=== PATIENT | male | born 1940 | race Caucasian/White ===

== ENCOUNTER → 2016-05-26 | Outpatient (CLI) | payer MEDICARE, OTHER ==
--- OUTSIDE RECORDS SUMMARY | 2016-05-26 09:33 | XMS REPORT | Clinical Summary ---
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 Young Chiu MD Closure of fistula of large intestine FH Diabetes V18.0 Active Giacomo Wynn MD Family history of diabetes mellitus AFTERCARE FLW SURG TEETH ORL CAV&DIGESTV SYS NEC V58.75 Active Young Chiu MD Aftercare following surgery of the teeth,oral cavity and digestive system, NEC Medication List Medication Instructions Start Date Stop Date Generic Name NDC Status Provider Patient Instruction K-99 595 MG CAPS POTASSIUM GLUCONATE 91283391845 No Longer Active Jillina Frazell INSERTER OPERATOR Active ADULT ASPIRIN LOW STRENGTH 81 MG TBDP ASPIRIN 14398385180 No Longer Active Jillina Frazell INSERTER OPERATOR Active AMLODIPINE-ATORVASTATIN 10-10 MG TABS AMLODIPINE- ATORVASTATIN 58603434306 No Longer Active Jillina Frazell INSERTER OPERATOR Active TYLENOL PM EXTRA STRENGTH 500-25 MG TABS 2 at bedtime DIPHENHYDRAMINE-APAP (SLEEP) 58653631190 No Longer Active Jillina Frazell INSERTER OPERATOR Active VITAMIN D 2000 UNIT CAPS Take one by mouth daily CHOLECALCIFEROL 23154417692 No Longer Active Jennifer Ashley APRN Active NEOMYCIN SULFATE 500 MG TABS two by mouth at 10:00, 11:00, and 3:00 the day before surgery NEOMYCIN SULFATE 00779248026 No Longer Active Jennifer Ashley APRN Active LEEANNA-TAB 500 MG TBEC two tablets by mouth at 10:00, 11:00 and 3:00 the day before surgery. ERYTHROMYCIN BASE 98959639647 No Longer Active Jennifer Ashley APRN Active ICAPS CAPS Take one by mouth daily MULTIPLE VITAMINS-MINERALS 48713194044 Active Jennifer Ashley APRN Active SM CORAL CALCIUM 1000 (390 CA) MG TABS Take one by mouth daily CORAL CALCIUM 18943250588 Active Jennifer Ashley APRN Active [facility] OIL 1200 MG CAPS OMEGA-3 FATTY ACIDS 24517791746 No Longer Active Jennifer Ashley APRN Active CO Q 10 CAPS Take one by mouth daily COENZYME Q10 CAPS 32008436330 Active Idalia Mays Active ASPIR-81 81 MG TBEC Take one by mouth daily ASPIRIN 77283953877 Active HODAN Glez Active PLAVIX 75 MG TABS Take one by mouth daily CLOPIDOGREL BISULFATE 94741502170 Active HODAN Glez Active LISINOPRIL 10 MG TABS LISINOPRIL 82438352791 Active Giacomo Wynn MD Active AMLODIPINE BESYLATE 10 MG TABS AMLODIPINE BESYLATE 75082429706 Active Giacomo Wynn MD Active CLOPIDOGREL BISULFATE 75 MG TABS CLOPIDOGREL BISULFATE 93127315495 Active Giacomo Wynn MD Active ATENOLOL 25 MG TABS 1/2 in the am 1/2 at hs ATENOLOL 17041637149 Active Giacomo Wynn MD Active [facility] 1200 MG CAPS [facility] OIL 1200 MG CAPS OMEGA-3 FATTY ACIDS Inactive LEEANNA-TAB 500 MG TBEC two tablets by mouth at 10:00, 11:00 and 3:00 the day before surgery. LEEANNA-TAB 500 MG TBEC ERYTHROMYCIN BASE Inactive NEOMYCIN SULFATE 500 MG TABS two by mouth at 10:00, 11:00, and 3:00 the day before surgery NEOMYCIN SULFATE 500 MG TABS 893607 NEOMYCIN SULFATE Inactive VITAMIN D 2000 UNIT CAPS Take one by mouth daily VITAMIN D 2000 UNIT CAPS CHOLECALCIFEROL Inactive TYLENOL PM EXTRA STRENGTH 500-25 MG TABS 2 at bedtime TYLENOL PM EXTRA STRENGTH 500-25 MG TABS 9607441 DIPHENHYDRAMINE-APAP (SLEEP ) Inactive AMLODIPINE-ATORVASTATIN 10-10 MG TABS AMLODIPINE- ATORVASTATIN 10-10 MG TABS 359035 AMLODIPINE-ATORVASTATIN Inactive ADULT ASPIRIN LOW STRENGTH 81 MG TBDP ADULT ASPIRIN LOW STRENGTH 81 MG TBDP ASPIRIN Inactive K-99 595 MG CAPS K-99 595 MG CAPS POTASSIUM GLUCONATE Inactive Vital Signs Date Name Value Unit Range Description blood pressure, diastolic - 8462-4 71 mm[Hg] BP santos blood pressure, systolic - 8480-6 127 mm[Hg] BP sys height E&M - 8302-2 71 [in_us] Bdy height pulse rate E&M - 8867-4 84 /min Heart rate temperature E&M 98.8 [degF] Body temperature weight E&M - 3141-9 262 [lb_av] Weight Measured blood pressure, diastolic - 8462-4 68 mm[Hg] BP satnos blood pressure, systolic - 8480-6 117 mm[Hg] BP sys pulse rate E&M - 8867-4 81 /min Heart rate temperature E&M 99.2 [degF] Body temperature weight E&M - 3141-9 258.8 [lb_av] Weight Measured blood pressure, diastolic - 8462-4 72 mm[Hg] BP santos blood pressure, systolic - 8480-6 130 mm[Hg] BP sys height E&M - 8302-2 71 [in_us] Bdy height pulse rate E&M - 8867-4 70 /min Heart rate temperature E&M 98.1 [degF] Body temperature weight E&M - 3141-9 270 [lb_av] Weight Measured blood pressure, diastolic - 8462-4 67 mm[Hg] BP santos blood pressure, systolic - 8480-6 119 mm[Hg] BP sys height E&M - 8302-2 71 [in_us] Bdy height pulse rate E&M - 8867-4 73 /min Heart rate temperature E&M 98.4 [degF] Body temperature weight E&M - 3141-9 270.6 [lb_av] Weight Measured blood pressure, diastolic - 8462-4 67 mm[Hg] BP santos blood pressure, systolic - 8480-6 112 mm[Hg] BP sys height E&M - 8302-2 71 [in_us] Bdy height pulse rate E&M - 8867-4 68 /min Heart rate temperature E&M 97.7 [degF] Body temperature weight E&M - 3141-9 276 [lb_av] Weight Measured blood pressure, diastolic - 8462-4 68 mm[Hg] BP santos blood pressure, systolic - 8480-6 127 mm[Hg] BP sys height E&M - 8302-2 71 [in_us] Bdy height pulse rate E&M - 8867-4 71 /min Heart rate temperature E&M 97.5 [degF] Body temperature weight E&M - 3141-9 262 [lb_av] Weight Measured Diagnostic Results Date Name Value Unit Range Description Lab Report: Basic Metabolic Panel - Chemistry sodium, serum 144 mmol/L 746-985 9895/01/28 potassium, serum 4.2 mmol/L 3.5-5.2 chloride, serum 105 mmol/L 98-107 carbon dioxide, venous blood 30.7 mmol/L 21.0-32.0 blood glucose 96 mg/dL 65-110 calcium, serum 9.1 mg/dL 8.5-10.1 urea nitrogen, blood 18 mg/dL 7-18 creatinine, serum 1.00 mg/dL 0.60-1.30 Lab Report: CBC W/ DIFF - Hematology leukocyte count, blood 10.6 10*3/mm3 hemoglobin, blood 10.9 g/dL platelet count 474 10*3/mm3 Lab Report: CBC W/ DIFF, BMP - Chemistry sodium, serum 144 mmol/L potassium, serum 4.4 mmol/L blood glucose 92 mg/dL creatinine, serum 1.09 mg/dL Lab Report: CBC W/ DIFF, BMP - Hematology leukocyte count, blood 6.3 10*3/mm3 hemoglobin, blood 12.2 g/dL platelet count 264 10*3/mm3 Lab Report: UADIP W/MICRO, AUTO - Chemistry protein, total urine random Negative mg/dL Negative RBC, urine, dipstick 1+ Negative Lab Report: UADIP W/MICRO, AUTO - Urinalysis urobilinogen, urine, semiquantitative (dipstick) 0.2 Normal leukocyte esterase, urine, by dipstick 3+ Negative nitrite, urine, semiquantitative Negative Negative glucose, urine, semiquantitative Negative Negative ketones, urine, by test strip Negative Negative bilirubin, urine Negative Negative urine color Yellow Colorless;Lightyellow;Straw;Yellow appearance, urine SlCloudy Clear specific gravity, urine 1.025 1.000-1.030 pH, urine, semiquantitative 6.0 5.0-8.5 Office Visit: FU Pneumaturia - Chemistry protein, total urine random negative mg/dL RBC, urine, dipstick negative Office Visit: FU Pneumaturia - Urinalysis ketones, urine, by test strip negative bilirubin, urine negative glucose, urine, semiquantitative negative pH, urine, semiquantitative 8.5 specific gravity, urine 1.000 urinalysis, routine Clean Catch culture status No urine color yellow appearance, urine clear leukocyte esterase, urine, by dipstick 3+ nitrite, urine, semiquantitative negative urobilinogen, urine, semiquantitative (dipstick) negative protein, urine, semiquantitative (dipstick) negative Encounters Code Encounter Date Provider Facility CPT-07330 Level 4 Est. Patient 14:28:24 CDT Young Chiu MD [facility] CPT-98341 Level 4 Est. Patient 15:45:41 PLAY WRITER Young Chiu MD [facility] CPT-33972 Level 4 New Patient 17:16:27 PLAY WRITER Giacomo Wynn MD [facility] Procedures Code Procedure Name Date Entry Date Standard Description CPT-94022 Postop F/U Visit 15:25:19 CDT CPT-22298 Postop F/U Visit 14:08:32 CDT CPT-65607 Postop F/U Visit 14:06:09 CDT CPT-05583 Cystoscopy 17:16:27 PLAY WRITER
--- NOTE | 2016-05-26 10:03 | Diagnostic Imaging Report ---
KUB. INDICATION: Right flank pain. FINDINGS: There is a 7-mm calcification projecting over the left flank that may relate to a kidney stone. There is a faint density which could be calcification or enterolith. No ureteric or bladder stones are identified. IMPRESSION: Left flank calcification could be a kidney stone. Questionable density in the right flank could be a stone versus fecalith. Dictated by: Dictated on workstation # [id number]
== END ==
LOC: RAD 09:29
PROVIDERS: ATTEND Nurse Practitioner Family
DX: R10.9 Unspecified abdominal pain (principal)
CPT/HCPCS: 74000

== ENCOUNTER 2017-07-28 19:49 | Outpatient (CLI) | payer MEDICARE, OTHER | END 2017-07-29 06:40 | disposition home or self-care (01) | LOC: SLEEP 19:49 | PROVIDERS: ATTEND Otolaryngology Otolaryngology/Facial Plastic Surgery | DX: G47.33 Obstructive sleep apnea (adult) (pediatric) (principal) | CPT/HCPCS: 95811 ==

== ENCOUNTER 2020-01-31 05:42 | Outpatient (CLI) | payer MEDICARE, OTHER ==
[~2020-01-31] VITALS: Ht 185.5 cm; Wt 133.2 kg
[2020-01-31] MEDS ORDERED: MULT-1056 PO (12:02)
[2020-01-31] MEDS ORDERED: MAGN400T39 PO (12:02)
[2020-01-31] MEDS ORDERED: PRAV20TA3 PO (12:02)
[2020-01-31] MEDS ORDERED: MTP25TSR PO (12:02)
[2020-01-31] MEDS ORDERED: CALC-654 PO (12:02)
[2020-01-31] MEDS ORDERED: AMLO5TAB9 PO (12:02)
[2020-01-31] MEDS ORDERED: UBID100C17 PO (12:02)
[2020-01-31] MEDS ORDERED: LISI10TA2 PO (12:02)
== END 2020-01-31 12:07 | disposition home or self-care (01) ==
LOC: PREOP 05:42
PROVIDERS: ATTEND Specialist
DX: Z01.818 Encounter for other preprocedural examination (principal)

== ENCOUNTER 2020-02-02 07:17 | Day surgery (SDC) | payer MEDICARE, OTHER ==
[~2020-02-02] VITALS: Ht 185 cm; Wt 133.2 kg
[~2020-02-02 07:17] MED LIST: AMLO5TAB9 PO; CALC-654 PO; LISI10TA2 PO; MAGN400T39 PO; MTP25TSR PO; MULT-1056 PO; PRAV20TA3 PO; UBID100C17 PO
[2020-02-02 07:23] VITALS: BP 141/80
[2020-02-02] MEDS ORDERED: TETRACAINE 0.5% OPHTH SOLN 4 ML BTL (SINGLE DOSE ONLY) OU PRN (07:30)
[2020-02-02] MEDS ORDERED: TROPICAMIDE 1% OPH SOLN (MYDRIACYL) 15 ML BTL OU PRN (07:30)
[2020-02-02] MEDS ORDERED: PHENYLEPHRINE 10% OPHTH (NEO-SYN) 5 ML BTL OU PRN (07:30)
--- NOTE | 2020-02-02 07:51 | Ophthalmologist Pre-Op Note ---
Pre-Operative Progress Note H&P Reviewed The H&P was reviewed, patient examined and no changes noted. Date H&P Reviewed: Feb 02, 2020 Time H&P Reviewed: 07:51 Pre-Op Dx Secondary Cataract, Bilateral Eyes OFELIA MORALES MD Feb 02, 2020 07:51
[2020-02-02 08:15] VITALS: BP 141/80
--- NOTE | 2020-02-02 08:20 | Ophthalmology Operative Report ---
YAG Capsulotomy PREOPERATIVE DIAGNOSIS: Secondary Cataract Bilateral POSTOPERATIVE DIAGNOSIS: Secondary Cataract Bilateral PROCEDURE: YAG Capsulotomy, Bilateral SURGEON: Doug Morales ANESTHESIA: Topical anesthesia COMPLICATIONS: None ESTIMATED BLOOD LOSS: Minimal DESCRIPTION OF PROCEDURE: After proper informed consent was obtained, the patient's, a 80 male , received one drop of Tropicamide and one drop of Tetracaine in each eye. The patient was then placed at the YAG laser and using a power of [4.0 ] millijoules and bursts [ 21] right eye and [ 17] left eye were used to fashion a central capsulotomy. The patient tolerated the procedure well without complications. DOUG MORALES MD Feb 02, 2020 08:20
== END 2020-02-02 08:15 | disposition home or self-care (01) ==
LOC: SDC 07:17
PROVIDERS: ATTEND Specialist
DX: H26.493 Other secondary cataract, bilateral (principal); E78.00 Pure hypercholesterolemia, unspecified; Z79.899 Other long term (current) drug therapy; Z80.52 Family history of malignant neoplasm of bladder